=== PATIENT | female | born 1950 | race Caucasian/White ===

== ENCOUNTER → 2025-03-19 | Day surgery (SDC) | payer OTHER ==
--- NOTE | 2025-03-19 11:44 | RAD REPORT ---
PROCEDURE: ULTRASOUND GUIDED BIOPSY Pre-procedure diagnosis: Left thyroid nodule Post-procedure diagnosis: Same as above. CLINICAL INDICATION: E04.1 COMPLICATIONS: No immediate complications. IMPRESSION: Percutaneous ultrasound-guided FNA biopsy of left thyroid nodule PROCEDURE DETAILS: Consent: Informed consent for the procedure including risks, benefits and alternatives was obtained a nd time-out was performed prior to the procedure. Preparation: The site was prepared and draped using all elements of maximal sterile barrier technique including sterile gloves, sterile gown, cap, mask, large sterile sheet, sterile ultrasound probe cover as needed, hand hygiene and cutaneous antisepsis with 2% chlorhexidine. Sedation: None Biopsy: Local anesthesia was administered. Under ultrasound guidance, the 25-gauge biopsy needle was advanced to the target and biopsy was performed. The biopsy needle was removed and a sterile dressing was applied. [id number]. Number of specimens: 5 On-site biopsy touch preparation: None. Additional sampling description: None. Preliminary assessment of sample adequacy: Not applicable. Tract embolization: None. Post-biopsy imaging findings: No immediate complications seen. Contrast used: None. Estimated blood loss: Less than 10 mL.
== END ==
LOC: FNA 09:31
PROVIDERS: ATTEND Otolaryngology
PROC: 0G9G3ZX Drainage of Left Thyroid Gland Lobe, Percutaneous Approach, Diagnostic (ICD-10-PCS; principal; 2025-03-19)
DX: E04.1 Nontoxic single thyroid nodule (principal)
CPT/HCPCS: 88162